=== PATIENT | female | born 2000 | race Caucasian/White ===

== ENCOUNTER 2021-02-18 21:53 | Emergency (ER) | payer OTHER ==
[2021-02-18 22:04] VITALS: BP 106/62
[2021-02-18] MEDS ORDERED: Sodium Chloride 0.9% 1,000 ML IV ONE (22:54)
--- NOTE | 2021-02-18 22:58 | EDM.PDOC ---
ED HPI GENERAL MEDICAL PROBLEM - General Chief Complaint: ENT Problem Stated Complaint: SORE THROAT Time Seen by Provider: 02/18/21 22:23 Source of Information: Reports: Patient, Family (Mother) History Limitations: Reports: No Limitations - History of Present Illness INITIAL COMMENTS - FREE TEXT/NARRATIVE: Ms. Sexton is a pleasant 20-year-old woman who now presents the ED stating that she developed a sore throat with swollen tonsils, along with a decreased appetite, body aches, a headache, and bilateral ear pain this past 02/17/2021. No recent fever, nausea, or abdominal pain. She has been taking OTC ibuprofen 400 mg every 4 hours. She went to the walk-in clinic today, where a rapid strep test returned negative. The walk-in clinic did not prescribe any medications, wherefore the patient's mother brought the patient to the ED for relief of her symptoms. The patient states that she has had similar symptoms in the past. She was seen by an ENT, diagnosed with postnasal drip. The patient reports that she has had documented streptococcal pharyngitis twice in the past. She also reports that she had mononucleosis in July 2020. She acknowledges that she is sexually active. Here in the ED, the patient is initially found to be tachycardic at 111 bpm, otherwise, she is hemodynamically stable, afebrile, saturating 99% on room air. The patient reports that 2 days ago she was tired, otherwise, prior to Tuesday, she denies having a recent fever, chills, sore throat, ear pain, nasal or sinus congestion, cough, dyspnea, chest pain, palpitations, nausea, vomiting, constipation, diarrhea, abdominal pain, urinary symptoms, recent weight gain or weight loss, recent bloody bowel movements or black bowel movements, recent joint aches, headaches, or rashes. The patient's PCP is JOSY Go. Throat Pain Score (Numeric/FACES): 9 - Related Data Allergies Allergy/AdvReac Type Severity Reaction Status Date / Time No Known Allergies Allergy Verified 02/18/21 21:59 Home Meds: Home Meds Ibuprofen [Advil Liqui-Gels] 40 mg PO ONCALL PRN 02/18/21 [History] Past Medical History - Past Surgical History HEENT Surgical History: Reports: Oral Surgery (dental extractions) Social & Family History - Tobacco Use Tobacco Use Status *Q: Never Tobacco User - Living Situation & Occupation Occupation: Student ([employer]) ED ROS ENT - Review of Systems Review Of Systems: Comprehensive ROS is negative, except as noted in HPI. ED EXAM, ENT - Physical Exam Exam: See Below Exam Limited By: No Limitations General Appearance: Alert, WD/WN, No Apparent Distress Eye Exam: Bilateral Eye: EOMI, Normal Inspection Ears: Normal External Exam, Normal Canal, Hearing Grossly Normal, Normal TMs (no erythema, normal cone of light) Nose: Normal Inspection, Normal Mucousa, No Blood Mouth/Throat: Normal Gums, Normal Lips, Normal Teeth, Tonsillar Erythema, Tonsillar Exudates, Tonsillar Swelling (moderate, right > left) Head: Atraumatic, Normocephalic Neck: Normal Inspection, Supple, Non-Tender, Full Range of Motion. No: Lymphadenopathy (L), Lymphadenopathy (R) Respiratory/Chest: No Respiratory Distress, Lungs Clear, Normal Breath Sounds, No Accessory Muscle Use Cardiovascular: Normal Peripheral Pulses, Regular Rate, Rhythm, No Edema, No Gallop, No JVD, No Murmur, No Rub GI/Abdominal: Normal Bowel Sounds, Soft, Non-Tender, No Organomegaly, No Distention, No Abnormal Bruit, No Mass Back: Normal Inspection, Full Range of Motion Extremities: Normal Inspection, Normal Range of Motion, No Pedal Edema, Normal Capillary Refill Neurological: Alert, Oriented, Normal Cognition, No Motor/Sensory Deficits Psychiatric: Normal Affect Skin: Warm, Dry, Intact, Normal Color, No Rash Course - Vital Signs Last Recorded V/S: Last Vital Signs Temp 37.9 C 02/18/21 22:02 Pulse 117 H 02/19/21 00:50 Resp 19 02/18/21 22:02 BP 106/62 02/18/21 22:02 Pulse Ox 97 02/19/21 00:50 - Orders/Labs/Meds Orders: Active Orders 24 hr Category Date Time Status CULTURE THROAT [RM] Stat Lab 02/18/21 22:54 Received Labs: Laboratory Tests 02/18/21 02/18/21 02/18/21 Range/Units 22:54 23:03 23:03 WBC 19.96 H (3.98-10.04) K/mm3 RBC 4.27 (3.98-5.22) M/mm3 Hgb 12.8 (11.2-15.7) gm/dl Hct 38.7 (34.1-44.9) % MCV 90.6 (79.4-94.8) fl MCH 30.0 (25.6-32.2) pg MCHC 33.1 (32.2-35.5) g/dl RDW Std Deviation 40.3 (36.4-46.3) fL Plt Count 162 L (182-369) K/mm3 MPV 11.5 (9.4-12.3) fl Neutrophils % (Manual) 85 H (40-60) % Band Neutrophils % 6 (0-10) % Lymphocytes % (Manual) 5 L (20-40) % Atypical Lymphs % 0 % Monocytes % (Manual) 4 (2-10) % Eosinophils % (Manual) 0 L (0.7-5.8) % Basophils % (Manual) 0 L (0.1-1.2) Platelet Estimate Adequate RBC Morph Comment Normal Sodium (136-145) mEq/L Potassium (3.5-5.1) mEq/L Chloride (98-107) mEq/L Carbon Dioxide (21-32) mEq/L Anion Gap (5-15) BUN (7-18) mg/dL Creatinine (0.55-1.02) mg/dL Est Cr Clr Drug Dosing mL/min Estimated GFR (MDRD) (>60) mL/min BUN/Creatinine Ratio (14-18) Glucose (74-106) mg/dL Calcium (8.5-10.1) mg/dL Total Bilirubin (0.2-1.0) mg/dL AST (15-37) U/L ALT (14-59) U/L Alkaline Phosphatase (46-116) U/L Total Protein (6.4-8.2) g/dl Albumin (3.4-5.0) g/dl Globulin gm/dL Albumin/Globulin Ratio (1-2) Monoscreen Negative (NEGATIVE) Group A Strep (PCR) Not detected (NOT DETECT) C trachomatis DNA (PCR) N gonorrhoeae DNA (PCR) 02/18/21 02/18/21 Range/Units 23:03 23:15 WBC (3.98-10.04) K/mm3 RBC (3.98-5.22) M/mm3 Hgb (11.2-15.7) gm/dl Hct (34.1-44.9) % MCV (79.4-94.8) fl MCH (25.6-32.2) pg MCHC (32.2-35.5) g/dl RDW Std Deviation (36.4-46.3) fL Plt Count (182-369) K/mm3 MPV (9.4-12.3) fl Neutrophils % (Manual) (40-60) % Band Neutrophils % (0-10) % Lymphocytes % (Manual) (20-40) % Atypical Lymphs % % Monocytes % (Manual) (2-10) % Eosinophils % (Manual) (0.7-5.8) % Basophils % (Manual) (0.1-1.2) Platelet Estimate RBC Morph Comment Sodium 136 (136-145) mEq/L Potassium 3.4 L (3.5-5.1) mEq/L Chloride 100 (98-107) mEq/L Carbon Dioxide 25 (21-32) mEq/L Anion Gap 14.4 (5-15) BUN 9 (7-18) mg/dL Creatinine 0.9 (0.55-1.02) mg/dL Est Cr Clr Drug Dosing 85.38 mL/min Estimated GFR (MDRD) > 60 (>60) mL/min BUN/Creatinine Ratio 10.0 L (14-18) Glucose 126 H (74-106) mg/dL Calcium 8.6 (8.5-10.1) mg/dL Total Bilirubin 1.6 H (0.2-1.0) mg/dL AST 11 L (15-37) U/L ALT 17 (14-59) U/L Alkaline Phosphatase 67 (46-116) U/L Total Protein 7.3 (6.4-8.2) g/dl Albumin 3.5 (3.4-5.0) g/dl Globulin 3.8 gm/dL Albumin/Globulin Ratio 0.9 L (1-2) Monoscreen (NEGATIVE) Group A Strep (PCR) (NOT DETECT) C trachomatis DNA (PCR) Not detected N gonorrhoeae DNA (PCR) Not detected Meds: Medications Discontinued Medications Generic Name Dose Route Start Last Admin Trade Name Freq PRN Reason Stop Dose Admin Hydromorphone HCl 0.5 mg 02/18/21 23:09 02/18/21 23:35 Hydromorphone 0.5 Mg/0.5 Ml Syringe IVPUSH 02/18/21 23:10 0.5 mg ONETIME ONE Administration Sodium Chloride 1,000 mls @ 999 mls/hr 02/18/21 22:54 02/18/21 23:35 Normal Saline IV 02/18/21 23:54 999 mls/hr ONETIME ONE Administration Sodium Chloride 1,000 mls @ 999 mls/hr 02/19/21 00:55 02/19/21 01:09 Normal Saline IV 02/19/21 01:55 999 mls/hr ONETIME ONE Administration Ondansetron HCl 4 mg 02/18/21 23:09 02/18/21 23:35 Ondansetron 4 Mg/2 Ml Sdv IVPUSH 02/18/21 23:10 4 mg ONETIME ONE Administration Penicillin G Benzathine 1.2 millunits 02/19/21 02:34 Penicillin G Benzathine 1,200,000 Units/2 Ml Syringe IM 02/19/21 02:35 ONETIME STA - Re-Assessments/Exams Free Text/Narrative Re-Assessment/Exam: 02/18/21 22:54 As above, the patient developed a sore throat and swollen tonsils yesterday, along with decreased appetite and fluid intake, body aches, a headache, and bilateral ear pain. No recent fever. On examination, she has moderately enlarged tonsils that are erythematous, with exudates. I swabbed for a group A strep by PCR, along with a pharyngeal culture. I have ordered a mononucleosis screen, along with a CBC and CMP. In the meantime, the patient will be given IV fluid. 02/18/21 23:08 Notified by lab that we can test for GC by PCR using the swab ordinarily used in the vagina. I swabbed the patient's tonsils with that swab. 02/19/21 00:50 The patient's CBC is remarkable for leukocytosis of 19.96, with 6% bandemia. She has mild normal cytopenia of 162,000, with the remainder of her CBC being unremarkable. Her CMP is remarkable for slight hypokalemia of 3.4, and mild hyperglycemia of 126. Her TBil is elevated at 1.6, with the remainder of her CMP being unremarkable. Her mononucleosis screen returned negative. Her group a streptococcus by PCR test returned negative. Notified by lab that the GC by PCR test resulted in an error. They will need to repeat the test, which is expected to take 1 hour 40 minutes. 02/19/21 00:56 I notified the patient and her mother of the test results so far and the delay in the GC by PCR test. Obviously, they are not happy about it, but are willing to wait for the results. 02/19/21 02:30 The patient's GC by PCR has returned negative for both. 02/19/21 02:34 Test results discussed with the patient and her mother. As above, while today's PCR tests were negative, her elevated WBC count with left shift suggests a bacterial infection, therefore I am recommending treatment with a single injection of penicillin G benzathine, a long-acting penicillin that releases over the course of 10 days, and covers oral pathogens. The patient agreed. With respect to her sore throat, I am recommending Chloraseptic spray, warm salt water gargles, Tylenol or ibuprofen. Departure - Departure Time of Disposition: 02:36 Disposition: Home, Self-Care 01 Condition: Good Clinical Impression: Tonsillitis with exudate - Discharge Information *PRESCRIPTION DRUG MONITORING PROGRAM REVIEWED*: Not Applicable *COPY OF PRESCRIPTION DRUG MONITORING REPORT IN PATIENT NATALIA: Not Applicable Instructions: Tonsillitis, [id number] Referrals: Camille Ruffin PA-C [Primary Care Provider] - Forms: ED Department Discharge Additional Instructions: You were seen in the emergency room for a sore throat with enlarged tonsils, along with a decreased appetite, body aches, headache, and ear pain, since Tuesday. On examination, you were found to have tonsillitis with exudates, while the rest of your examination was unremarkable. Work-up in the ER included several blood tests, a strep test by PCR, a gonorrhea/chlamydia test by PCR, and a pharyngeal culture. Your white blood cell count was found to be somewhat elevated with a "left shift", suggesting a bacterial infection. The remainder of your work-up was unremarkable. Based on your history, physical examination, and ER tests, you may have a bacterial infection of your tonsils. You were given a single dose of the long-acting antibiotic penicillin G benzathine, which will slowly release over 10 days. No further antibiotics are necessary. For your sore throat, we recommend that you use Chloraseptic spray, warm salt water gargles, Tylenol, or ibuprofen. You will probably find that ibuprofen works better than Tylenol. If any other problems, please do not hesitate to return to the ER. Sepsis Event Note (ED) - Evaluation Sepsis Screening Result: No Definite Risk - Focused Exam Vital Signs: Vital Signs Temp Pulse Resp BP Pulse Ox 02/19/21 00:50 117 H 97 02/18/21 22:02 37.9 C 111 H 19 106/62 99 - My Orders Last 24 Hours: My Active Orders 02/18/21 22:54 CULTURE THROAT [RM] Stat - Assessment/Plan Last 24 Hours: My Active Orders 02/18/21 22:54 CULTURE THROAT [RM] Stat
[2021-02-18] MEDS ORDERED: HYDROmorphone 1 MG/ML Syringe IVPUSH ONE (23:01)
[2021-02-18] MEDS ORDERED: Promethazine 25 MG in Sodium Chloride 0.9% 50 ML IV ONE (23:01)
[2021-02-18] MEDS ORDERED: Ondansetron 4 MG/2 ML SDV IVPUSH ONE (23:09)
[2021-02-18] MEDS ORDERED: HYDROmorphone 0.5 MG/0.5 ML Syringe IVPUSH ONE (23:09)
[2021-02-19 00:51] VITALS: PULSE 117
[2021-02-19] MEDS ORDERED: Sodium Chloride 0.9% 1,000 ML IV ONE (00:55)
[2021-02-19 02:21] LABS: C. TRACHOMATIS BY PCR NOT DETECTED; N. GONORRHOEAE BY PCR NOT DETECTED
[2021-02-19] MEDS ORDERED: Penicillin G Benzathine 1,200,000 Units/2 ML Syringe IM STA (02:34)
== END 2021-02-19 02:50 | disposition home or self-care (01) ==
LOC: JD.ED 21:53
DX: J03.90 Acute tonsillitis, unspecified (principal)
CPT/HCPCS: 36415; 80053; 85007; 85027; 86308; 87070; 87077; 87184; 87491; 87591; 87651; 96374; 96375; 99284; J0561; J1170; J2405; J7030; 99283